=== PATIENT | female | born 1955 | race Caucasian/White ===

== ENCOUNTER → 2019-01-29 | Day surgery (SDC) | payer BC ==
[2019-01-27 09:31] VITALS: BMI 31.1
[~2019-01-29] MED LIST: ALPRAZolam 0.25 MG TAB PO ONE; BUPIVACAIN-EPI 0.5%-1:200,000 30 ML VIAL SQ ONE; DEXAMETHASONE SOD PHOSPHATE 10 MG/ML 1 ML VIAL IV ONE; HEPARIN SODIUM,PORCINE 5,000 UNIT/ML 1 ML VIAL SQ ONE; HYDROcodone/APAP 5-325MG 1 EACH TAB PO PRN; KETAMINE 10 MG/ML 20 ML VIAL ONE; LACTATED RINGERS 1,000 ML IV ONE; LACTATED RINGERS 1,000 ML IV SCH; LIDOCAINE 1% 20 ML VIAL (10MG/ML) FOR IV START INTRADERMA PRN; LIDOCAINE 1% INJ 10MG/ML (20 ML MDV) ONE; LIDOCAINE 1% INJ 10MG/ML (20 ML MDV) SQ ONE; MIDAZOLAM 2 MG/2 ML VIAL ONE; NALOXONE 0.4 MG/ML 1 ML VIAL IV PRN; ONDANSETRON 4 MG/2 ML VIAL IVP ONE; PROPOFOL 10 MG/ML 20 ML VIAL IV ONE; Pre Op ABX Message 1 EACH MISC MISCELLANE ONE; SCOPOLAMINE 1.5MG/72HR PATCH TRANSDERM ONE; SODIUM BICARB 4% 5 ML VIAL (0.48 MEQ/ML) MISCELLANE ONE; SODIUM CHLORIDE 0.9% 50 ML with ceFAZolin 2,000 MG IV ONE; SUCCINYLCHOLINE CHLORIDE 100 MG/5 ML SYR IV ONE; fentaNYL (PF) 50 MCG/ML 2 ML AMP ONE
--- NOTE | 2019-01-29 08:14 | P.HPADDEND ---
H&P Addendum H&P Addendum Date: 01/29/19 Patient here today for left breast lumpectomy. Radiology contacted me this morning stating that another suspicious area of calcifications were noted to extend anteriorly. Distance between the biopsy site and the calcifications 1.7 cm. After discussing with radiology we have decided to bracket both areas and include this in our specimen. No additional changes to the history and physical.
--- NOTE | 2019-01-29 09:05 | P.GSHP ---
History of Present Illness H&P Date: 01/29/19 Chief Complaint: Left breast cancer 63-year-old female underwent recent stereotactic core biopsy of an area of calcifications involving the upper outer quadrant of the left breast. The patient actually had 2 separate biopsies the first of which did not reveal calcifications and was felt to be incomplete sampling. The second core biopsy did reveal invasive ductal cancer ER/AL positive, HER-2/elfego negative. Patient is here today for elective left breast lumpectomy with sentinel lymph node biopsy. Upon review of the films radiology today identified an area of calcifications just anterior to the site of proven malignancy. This will be included in her lumpectomy specimen. Genetic testing performed by oncology because of a family history was negative per patient. Past Medical History Past Medical History: Cancer Additional Past Medical History / Comment(s): left breast History of Any Multi-Drug Resistant Organisms: None Reported Past Surgical History: Breast Surgery Additional Past Surgical History / Comment(s): left breast bx, oral sx for peridontal dx, soft tissue graft oral sx, laser sx for glaucoma Past Anesthesia/Blood Transfusion Reactions: No Reported Reaction Smoking Status: Former smoker - Past Family History Father Family Medical History: Cancer Medications and Allergies Home Medications Medication Instructions Recorded Confirmed Type No Known Home Medications 01/27/19 01/29/19 History Allergies Allergy/AdvReac Type Severity Reaction Status Date / Time No Known Allergies Allergy Verified 01/29/19 06:52 Surgical - Exam Vital Signs Temp Pulse Resp BP Pulse Ox 98.7 F 80 16 140/90 99 01/29/19 07:00 01/29/19 07:00 01/29/19 07:00 01/29/19 07:00 01/29/19 07:00 Physical exam: General: Well-developed, well-nourished HEENT: Normocephalic, sclerae nonicteric Right breast: No masses, no adenopathy Left breast: No masses, no adenopathy Abdomen: Nontender, nondistended Extremities: No edema Neuro: Alert and oriented Assessment and Plan (1) Breast cancer, left Narrative/Plan: Will proceed with lumpectomy left breast with wire localization and sentinel lymph node biopsy with injection. Risks of bleeding, infection, scarring, numbness, dimpling, nerve injury, seroma, possible additional surgery discussed. She understands and wishes to proceed. Current Visit: Yes Status: Acute Code(s): C50.912 - MALIGNANT NEOPLASM OF UNSPECIFIED SITE OF LEFT FEMALE BREAST SNOMED Code(s): 343892569
--- NOTE | 2019-01-29 09:08 | P.NAPBC ---
NAPBC Queries - NAPBC Queries Was patient's case review presented at [facility] tumor board? If no, comment.: No Was patient's pathology reviewed at [facility]? If no, comment.: No (Unknown) Was breast conservation surgery offered? If no, comment.: Yes Was sentinel node biopsy offered? If no, comment.: Yes Was diagnosis confirmed by percutaneous core biopsy? If no, comment.: Yes If mastectomy patient, was a preop referral to a reconstructive surgeon offered?: Yes (Not a mastectomy patient) Clinical Stage: Clinical stage IA
--- NOTE | 2019-01-29 09:23 | NM ---
EXAMINATION TYPE: NM sentinel node injection DATE OF EXAM: 01/29/2019 COMPARISON: Outside mammogram dated 11/22/2018 HISTORY: Left breast cancer with request for sentinel node injection. TECHNIQUE AND FINDINGS: The procedure of sentinel lymph node injection was explained to the patient. The benefits, alternatives, and risks were discussed. An informed consent was then obtained. Overlying skin is cleaned with sterile alcohol. Following this, 492 uCi Tc99m Tilmanocept was inject ed in the upper outer aspect of the left nipple intradermally. The patient tolerated the procedure well without any immediate complication. The patient was kept in the radiology department for short stay after the procedure and then taken to surgery for surgical p rocedure what is presumed intraoperative gamma probe will be used for sentinel lymph node detection. IMPRESSION: Left breast radiotracer injection for sentinel node localization as above.
[2019-01-29 11:36] VITALS: TEMP 98
--- NOTE | 2019-01-29 11:50 | P.OP ---
Date of Procedure: 01/29/19 Procedure(s) Performed: REOPERATIVE DIAGNOSIS: Left breast cancer POSTOPERATIVE DIAGNOSIS: Same PROCEDURE: Left Breast wire localization lumpectomy with sentinel lymph node biopsy SURGEON: Kenneth EBL: Minimal ANESTHESIA: General COMPLICATIONS: None OPERATIVE PROCEDURE: Patient was placed on the operating room table in the supine position. 2 mL of methylene blue was injected into the subareolar space. The breast was then massaged for 5 minutes. The breast was prepped and draped in usual sterile fashion. The left axilla was addressed at that time. The hot spot in the left axilla was identified. A small curvilinear incision was made using the scalpel. Dissection down through the subcutaneous tissues took place using electrocautery. Using the neoprobe I identified a total of 2 sentinel lymph nodes. One of these was blue in color. These were both removed and sent to pathology for close examination. Both lymph nodes were slightly larger and slightly more firm to palpation. Clinically I was slightly suspicious. Frozen sections from these lymph nodes were negative for metastatic disease. No bleeding was seen. The subcutaneous tissues were closed using 3-0 Vicryl sutures. The skin was closed using 4-0 Monocryl sutures. The wire entrance sites were then addressed. Both of these wires were present at the upper outer quadrant between 2 and 3:00. The posterior wire was the wire entering into the known malignancy. An adequate lumpectomy specimen was obtained circumferentially around both wires. Wider margins around the posterior wire took place. Posteriorly we were along the pectoralis fascia. As the specimen was palpated and evaluating the wire site I was slightly more suspicious of our inferior margin. For that reason a new inferior margin was obtained. This new inferior margin was painted the appropriate color and sent in formalin to pathology. The initial lumpectomy specimen was painted and the 6 appropriate colors. This was sent down to [facility] for specimen radiograph. Clips were used to identify the lumpectomy cavity. The clip was confirmed to be within the lumpectomy specimen by radiology. The subcutaneous tissues were closed using 3-0 Vicryl sutures. The skin was closed using a running 4-0 Monocryl stitch. Skin glue was then applied. DISPOSITION: Stable to recovery room
[2019-01-29] MEDS: HYDROmorphone 0.5 MG/0.5 ML SYRINGE IVP PRN ×3 (11:53→12:20)
[2019-01-29 12:13] VITALS: RESP 16
[2019-01-29 13:24] VITALS: BP 119/76; PULSE 70
--- NOTE | 2019-01-29 14:06 | MM ---
EXAMINATION TYPE: MG pre op needle loc LT, MG pre op loc each addl LT, MG surgical specimen LT DATE OF EXAM: 01/29/2019 COMPARISON: Outside exams dating back to 08/11/2016 CLINICAL HISTORY: Left breast invasive ductal carcinoma TECHNIQUE: Needle localization with wire placement and surgical excision of area of concern in the le ft breast. FINDINGS: The procedure of needle localization with wire placement and than surgical excision was exp lained to the patient. Benefits, alternatives, and risks were discussed. An informed consent was th en obtained. Preprocedural timeout was performed. Magnification views prior to the procedure demonstrate a 6 mm group of calcifications located approxi mately 1.7-1.9 cm from the biopsy-proven carcinoma. These are also seen in the upper outer quadrant o f the left breast. Discussion with the surgeon prior to the procedure with recommendation for bracket ed needle local was had. Decision was made to perform 2 site needle localization. The shortest pathway for procedure was chosen. Shortest pathway was lateral medial approach. The ove rlying skin was prepped and draped in usual sterile fashion for both sites. 13 cc of lidocaine buffer ed with bicarbonate was used as anesthetic into the skin and subcutaneous tissue up to the level of a krishna of concern for both sites. A 7 cm needle was used for both sites. It was placed via a lateral m edial approach under mammographic guidance for both sites. Subsequent 90 degrees mammogram show the needles to be in satisfactory position relative to the targeted area. At this point, wires were plac ed and the needles were withdrawn. The wires were fixed to patient's skin. Images were marked for s urgeon. The patient tolerated the procedure well without any immediate complication. The patient was kept in the radiology department for short stay after the procedure and then taken to surgery for surgical e xcision. Targeted calcifications, two biopsy markers and 2 wires are identified in specimen mammogra m. The patient was kept in hospital for short stay after the procedure and then discharged home in s table condition. IMPRESSION: Successful, uncomplicated bracketed left needle localization with wire placement x 2 and surgical excision of biopsy proven calcifications representing the invasive ductal carcinoma, two bio psy markers and 2 wires, full pathology results to follow.
== END ==
LOC: OR 06:23
PROVIDERS: ATTEND Surgery
DX: C50.912 Malignant neoplasm of unspecified site of left female breast (principal); Z17.0 Estrogen receptor positive status [ER+]; Z87.891 Personal history of nicotine dependence
CPT/HCPCS: 19301; 38525; 88342; 88331; 88307; 88341; 76098; 19281; 19282; 38792; A9520; J2250; J1644; J1100; J2405; J0690; J2001; J3010; J0330; J2704; J1170

== ENCOUNTER → 2019-10-13 | Outpatient (CLI) | payer BC ==
--- NOTE | 2019-10-13 11:35 | MM ---
Reason for exam: additional evaluation requested from prior study. Last mammogram was performed 11 months ago. History: Patient has history of breast cancer at age 63. Family history of breast cancer in 2 maternal aunts at age 38 and breast cancer in 2 maternal cousins at age 49. Benign MG pre op loc each addl LT of the left breast, January 29, 2019. Benign MG pre op needle loc LT of the left breast, January 29, 2019. Lumpectomy of the left breast, January 29, 2019. Stereotactic core biopsy of the left breast, December 03, 2018. Stereotactic core biopsy of the left breast, November 14, 2018. Taking antineoplastic beginning at age 63. Physical Findings: Nurse did not find any significant physical abnormalities on exam. MG Diagnostic Mammo w CAD ALEX Bilateral CC and MLO view(s) were taken. Prior study comparison: November 22, 2018, left breast mammogram, performed at [facility]. November 01, 2018, left breast mammogram, performed at [facility]. October 28, 2018, bilateral mammogram, performed at [facility]. October 26, 2017, bilateral mammogram, performed at [facility]. The breast tissue is heterogeneously dense. This may lower the sensitivity of mammography. No suspicious abnormality. Post therapy change on the left. These results were verbally communicated with the patient and result sheet given to the patient on 10/13/19. ASSESSMENT: Benign, BI-RAD 2 RECOMMENDATION: Follow-up diagnostic mammogram of both breasts in 1 year.
== END ==
LOC: RADMAMWWP 09:28
PROVIDERS: ATTEND Surgery
DX: R92.8 Other abnormal and inconclusive findings on diagnostic imaging of breast (principal)
CPT/HCPCS: 77066